=== PATIENT | male | born 1975 | race Caucasian/White ===

== ENCOUNTER 2019-10-12 05:20 | Emergency (ER) | payer MEDICAID, OTHER ==
--- NOTE | 2019-10-12 06:41 | EDM.PDOC ---
ED HPI GENERAL MEDICAL PROBLEM - General Chief Complaint: Upper Extremity Injury/Pain Stated Complaint: right arm pain Time Seen by Provider: 10/12/19 06:15 Source of Information: Reports: Patient History Limitations: Reports: No Limitations - History of Present Illness INITIAL COMMENTS - FREE TEXT/NARRATIVE: Mr. Ty is a very pleasant 44-year-old man with no chronic medical issues, on no medications, who states that yesterday morning, 10/11/2019, he was putting a new truck bed on his truck. He estimates that the truck bed weighs about 600 pounds. He was using a pry bar to align the holes, when he slipped on ice, causing him to move oddly. He states that he felt a pop in his right proximal arm, along with having sudden pain. Since then, the pain has increased, particularly with attempts to flex, adduct, or internally or externally rotate the arm. No prior injury to his right upper extremity. He is otherwise uninjured. The patient does not have a PCP. He has not received an influenza vaccine this season, but agreed to receive one here. Right Shoulder Pain Score (Numeric/FACES): 9 - Related Data Allergies Allergy/AdvReac Type Severity Reaction Status Date / Time No Known Allergies Allergy Verified 10/12/19 05:35 Home Meds: Home Meds . [No Known Home Meds] 10/18/18 [History] Past Medical History - Past Surgical History HEENT Surgical History: Reports: Adenoidectomy, Myringotomy w Tube(s) (bilateral ) Musculoskeletal Surgical History: Reports: Other (See Below) (left knee open ACL repair) Social & Family History - Tobacco Use Smoking Status *Q: Current Every Day Smoker Years of Tobacco use: 24 Packs/Tins Daily: 0.3 Packs/Tins Daily Comment: Down from 2 ppd - Caffeine Use Caffeine Use: Reports: Coffee - Alcohol Use Alcohol Use History: Yes Date/Time of Last Drink Comment: Alcoholic, sober since 2014 - Recreational Drug Use Recreational Drug Use: Yes Drug Use in Last 12 Months: No Recreational Drug Type: Reports: Marijuana/Hashish (last smoked 2015) - Living Situation & Occupation Living situation: Reports: , with Spouse Occupation: Employed ([employer]) Review of Systems - Review of Systems Review Of Systems: Comprehensive ROS is negative, except as noted in HPI. ED EXAM, GENERAL - Physical Exam Exam: See Below Exam Limited By: No Limitations General Appearance: Alert, WD/WN, No Apparent Distress Extremities: Other (No visible abnormality to the patient's right upper extremity, when compared to the left, such as swelling, erythema, ecchymosis, or abrasion. The patient has tenderness over his anterior shoulder, in particular, over the bicipital groove. Both Speeds test and Yergason's test are positive, by eliciting pain, however, the patient also has considerable weakness in these motions, including flexion and adduction of the shoulder. He also has pain and weakness with both internal and external rotation of the arm. He has good elbow extension strength, with poor flexion strength.) Course - Vital Signs Last Recorded V/S: Last Vital Signs Temp 36.5 C 10/12/19 05:30 Pulse 111 H 10/12/19 05:30 Resp 20 10/12/19 05:30 BP 146/86 H 10/12/19 05:30 Pulse Ox 98 10/12/19 05:30 - Orders/Labs/Meds Orders: Active Orders 24 hr Category Date Time Status Influenza Vaccine Charge [RC] .DISCHARGE Care 10/12/19 06:35 Ordered Pharmacy to Dose - InFluenza V [Pharmacy to Dose - Med 10/12/19 06:35 Once InFluenza Vaccine] 1 each IM ONETIME ONE DME for Discharge [COMM] Stat Oth 10/12/19 06:36 Ordered - Re-Assessments/Exams Free Text/Narrative Re-Assessment/Exam: 10/12/19 06:39 The patient's presentation is concerning for a long head tendinopathy or possible rupture. For today's purposes, the patient will be placed into an arm sling, to allow rest of the muscle, and I will ask him to apply ice packs and take [id number] ibuprofen as needed for discomfort. I will refer him to Ortho. He states that he does not need a note for work. The patient will receive an influenza vaccine prior to discharge. Departure - Departure Time of Disposition: 06:41 Disposition: Home, Self-Care 01 Condition: Good Clinical Impression: Injury of long head of biceps - Discharge Information *PRESCRIPTION DRUG MONITORING PROGRAM REVIEWED*: Not Applicable *COPY OF PRESCRIPTION DRUG MONITORING REPORT IN PATIENT SHARATH: Not Applicable Referrals: Ab Smith MD [Physician] - Additional Instructions: You were seen in the emergency room after developing right arm pain while installing a new truck bed. Based on your history of physical examination, you have likely injured the long head tendon of your right biceps muscle. Your right has been placed into an arm sling. We recommend that you wear this during the day. We recommend that you apply ice packs to the upper front of your right arm, as much as possible. Take [id number] ibuprofen, 2-3 tablets (400-600 mg) every 8 hours, with food, as needed for discomfort. Follow-up with the Orthopedic Surgeon Dr. Ab Smith at the next available appointment. Make sure that the telephone operator receptionist nose that this is a follow-up from the ER. If any other problems, please do not hesitate to return to the ER. *You received an influenza vaccine during your ER visit.* Sepsis Event Note - Evaluation Sepsis Screening Result: No Definite Risk - Focused Exam Vital Signs: Vital Signs Temp Pulse Resp BP Pulse Ox 10/12/19 05:30 36.5 C 111 H 20 146/86 H 98 Date Exam was Performed: 10/12/19 Time Exam was Performed: 06:36 - My Orders Last 24 Hours: My Active Orders 10/12/19 06:35 Influenza Vaccine Charge [RC] .DISCHARGE Pharmacy to Dose - InFluenza V [Pharmacy to Dose - InFluenza Vaccine] 1 each IM ONETIME ONE 10/12/19 06:36 DME for Discharge [COMM] Stat - Assessment/Plan Last 24 Hours: My Active Orders 10/12/19 06:35 Influenza Vaccine Charge [RC] .DISCHARGE Pharmacy to Dose - InFluenza V [Pharmacy to Dose - InFluenza Vaccine] 1 each IM ONETIME ONE 10/12/19 06:36 DME for Discharge [COMM] Stat
[2019-10-12] MEDS ORDERED: FLU Vacc QS2019-20(6MOS+)/PF 60 MCG/0.5 ML SYRINGE IM ONE (06:45)
== END 2019-10-12 07:14 | disposition home or self-care (01) ==
LOC: JD.ED 05:20
DX: S40.021A Contusion of right upper arm, initial encounter (principal); F17.210 Nicotine dependence, cigarettes, uncomplicated; Z98.890 Other specified postprocedural states; Z23 Encounter for immunization; W20.8XXA Other cause of strike by thrown, projected or falling object, initial encounter
CPT/HCPCS: 90686; 99282; 99283-25; G0008